=== PATIENT | female | born 1990 | race Caucasian/White ===

== ENCOUNTER 2024-08-20 15:08 | Emergency (ER) | payer SELFPAY ==
[~2024-08-20] VITALS: Ht 167.6 cm; Wt 69.8 kg
[2024-08-20 18:20] VITALS: BP 145/71
== END 2024-08-20 18:20 | disposition home or self-care (01) ==
LOC: ED 15:08
DX: R51.9 Headache, unspecified (principal); Z91.013 Allergy to seafood
CPT/HCPCS: 99283